=== PATIENT | male | born 1970 | race Caucasian/White ===

== ENCOUNTER 2017-07-15 19:29 | Emergency (ER) | payer OTHER ==
[~2017-07-15] VITALS: Ht 165.1 cm; Wt 63.5 kg
[2017-07-15 21:41] VITALS: BP 1113/81
== END 2017-07-15 21:41 | disposition home or self-care (01) ==
LOC: ED 19:29
DX: S51.811A Laceration without foreign body of right forearm, initial encounter (principal); W26.8XXA Contact with other sharp object(s), not elsewhere classified, initial encounter; Y93.89 Activity, other specified; Y92.89 Other specified places as the place of occurrence of the external cause; Y99.8 Other external cause status
CPT/HCPCS: J2001

== ENCOUNTER 2017-07-18 15:55 | Emergency (ER) | payer OTHER ==
[~2017-07-18] VITALS: Ht 165.1 cm; Wt 63.5 kg
[2017-07-18 16:02] VITALS: BP 112/78; Ht 165.1 cm; Wt 63.5 kg
== END 2017-07-18 17:05 | disposition home or self-care (01) ==
LOC: ED 15:55
DX: S61.511D Laceration without foreign body of right wrist, subsequent encounter (principal); X58.XXXD Exposure to other specified factors, subsequent encounter

== ENCOUNTER 2017-08-01 08:53 | Emergency (ER) | payer OTHER ==
[~2017-08-01] VITALS: Ht 165.1 cm; Wt 63.5 kg
[2017-08-01 09:06] VITALS: BP 133/84; Ht 165.1 cm; Wt 63.5 kg
== END 2017-08-01 10:39 | disposition home or self-care (01) ==
LOC: ED 08:53
DX: S51.811D Laceration without foreign body of right forearm, subsequent encounter (principal); X58.XXXD Exposure to other specified factors, subsequent encounter